=== PATIENT | female | born 1990 | race American Indian/Alaskan Native ===

== ENCOUNTER 2016-11-04 16:29 | Outpatient (CLI) | payer MEDICAID ==
[2016-11-04] MEDS ORDERED: LACTATED RINGERS 500 ML IV ONE (16:38)
[2016-11-04 17:49] LABS: Bacteria,Urine 1+ /HPF (Negative); Bilirubin,Urine NEG (Negative); Blood,Urine NEG (Negative); Ketones,Urine NEG (Negative); Leukocyte Esterase,Urine NEG (Negative); Mucus,Urine 3+ /HPF; Nitrite,Urine NEG (Negative); WBC,Urine < 1.0 /HPF (0.0-6.0)
[2016-11-04 18:23] VITALS: BP 105/62
--- NOTE | 2016-11-05 07:15 | Ultrasound Report ---
OB LIMITED INDICATION: Vaginal spotting. COMPARISON: None similar during this gestation. TECHNIQUE: Transabdominal grayscale ultrasound with Doppler interrogation. Gestation: Jones Position: Breech Placenta: Fundal; no evidence of abruption. Placental Grade: I Heart Rate: 157 BPM
== END 2016-11-04 19:00 | disposition home or self-care (01) ==
LOC: TRG 16:29
PROVIDERS: ATTEND Obstetrics & Gynecology
DX: O32.1XX0 Maternal care for breech presentation, not applicable or unspecified (principal); Z3A.00 Weeks of gestation of pregnancy not specified
CPT/HCPCS: 59025; 76815; 81001; 96360; J7120

== ENCOUNTER 2017-01-02 02:59 | Outpatient (CLI) | payer MEDICAID ==
[2017-01-02] MEDS ORDERED: LACTATED RINGERS 500 ML IV ONE (03:08)
[2017-01-02 03:15] VITALS: BP 121/68
[2017-01-02] MEDS ORDERED: VISTARIL PO ONE (03:47)
[2017-01-02 03:48] LABS: Bilirubin,Urine NEG (Negative); Blood,Urine NEG (Negative); Ketones,Urine NEG (Negative); Leukocyte Esterase,Urine NEG (Negative); Mucus,Urine FEW /HPF; Nitrite,Urine NEG (Negative); Protein,Urine <15 mg/dL mg/dL (Negative); Urobilinogen,Urine < 2.0 mg/dL (<2.0)
== END 2017-01-02 05:20 | disposition home or self-care (01) ==
LOC: TRG 02:59
PROVIDERS: ATTEND Obstetrics & Gynecology
DX: O62.9 Abnormality of forces of labor, unspecified (principal); Z3A.36 36 weeks gestation of pregnancy
CPT/HCPCS: 81001; Q0177

== ENCOUNTER 2017-01-09 22:43 | Outpatient (CLI) | payer MEDICAID ==
[2017-01-09 22:56] VITALS: BP 111/71
[2017-01-09] MEDS ORDERED: VISTARIL PO ONE (23:29)
== END 2017-01-09 23:35 | disposition home or self-care (01) ==
LOC: TRG 22:43
PROVIDERS: ATTEND Obstetrics & Gynecology
DX: O47.1 False labor at or after 37 completed weeks of gestation (principal); Z3A.37 37 weeks gestation of pregnancy
CPT/HCPCS: 59025; Q0177

== ENCOUNTER 2017-06-11 08:27 | Day surgery (SDC) | payer MEDICAID ==
[2017-06-11] MEDS ORDERED: NACL BACTERIOSTATIC INFILTRATI ONE (09:10)
[2017-06-11 09:40] LABS: Basophils % (Auto) 0.7 % (0.0-1.8); Eosinophils % (Auto) 5.1 % (0.0-4.3); Hematocrit 42.8 % (30.3-42.9); Hemoglobin 14.8 gm/dl (10.1-14.3); Mean Corpuscular HGB Conc 35 % (30-34); Mean Corpuscular Hemoglobin 30 pg (28-32); Mean Corpuscular Volume 85 fl (79-97); Platelet Count 239 K/mm3 (140-440); Red Blood Count 5.01 M/mm3 (3.65-5.03); Red Cell Distribution Width 13.2 % (13.2-15.2); White Blood Count 4.9 K/mm3 (4.5-11.0)
[2017-06-11] MEDS ORDERED: MONSEL'S TP ONE ×4 (09:43→10:56)
[2017-06-11] MEDS ORDERED: LUGOL'S SOLUTION 5% TP ONE (09:43)
[2017-06-11] MEDS ORDERED: ACETIC ACID 3% SOLN TP ONE (09:44)
[2017-06-11] MEDS ORDERED: VERSED IV NR (10:00)
[2017-06-11] MEDS ORDERED: LACTATED RINGERS 1,000 ML IV SCH (10:00)
--- NOTE | 2017-06-11 10:00 | Anesthesia Day of Surgery ---
Anesthesia Day of Surgery - Day of Surgery Patient Examined: Yes Patient H&P Reviewed: Yes Patient is NPO: Yes
--- NOTE | 2017-06-11 10:00 | Anesthesia Consultation ---
Anesthesia Consult and Med Hx Date of service: 06/11/17 - Airway Anesthetic Teeth Evaluation: Good ROM Head & Neck: Adequate Mental/Hyoid Distance: Adequate Mallampati Class: Class II Intubation Access Assessment: Good - Pulmonary Exam CTA: Yes - Cardiac Exam Cardiac Exam: No Murmur - Pre-Operative Health Status ASA Pre-Surgery Classification: ASA2 Proposed Anesthetic Plan: General - Pulmonary Hx Smoking: Yes Hx Asthma: No COPD: No Hx Pneumonia: No - Cardiovascular System Hx Hypertension: No - Central Nervous System Hx Seizures: No Hx Psychiatric Problems: No - Endocrine Hx Renal Disease: No Hx End Stage Renal Disease: No Hx Hypothyroidism: No Hx Hyperthyroidism: No - Hematic Hx Anemia: Yes Hx Sickle Cell Disease: No - Other Systems Hx Alcohol Use: No Hx Cancer: No
[2017-06-11] MEDS ORDERED: SILVER NITRATE TP ONE ×2 (10:01→10:51)
[2017-06-11] MEDS ORDERED: XYLOCAINE MPF 2% ONE (10:10)
[2017-06-11] MEDS ORDERED: DIPRIVAN 10 MG/ML IV ONE (10:10)
[2017-06-11] MEDS ORDERED: DILAUDID ONE ×2 (10:13→11:35)
[2017-06-11] MEDS ORDERED: ZOFRAN ONE (10:38)
[2017-06-11] MEDS ORDERED: DECADRON ONE (10:38)
[2017-06-11] MEDS ORDERED: NACL 0.9% IR ONE (10:50)
--- NOTE | 2017-06-11 11:14 | Post Anesthesia Evaluation ---
- Post Anesthesia Evaluation Patient Participated: Yes Airway Patent: Yes Stable Respiratory Function: Yes Nausea/Vomiting: No Temp > 96.8F: Yes Pain Manageable: Yes Adequeate Hydration: Yes Anesthesia Complications: No
--- NOTE | 2017-06-11 11:14 | Operative Report ---
Operative Report Operative Report: DATE OF OPERATION: 06/11/2017 POSTOPERATIVE DIAGNOSIS: Pap LGSIL can not r/o HGSIL colpo bx cin1 OPERATION PERFORMED: Loop electrosurgical excision procedure SURGEON: shelby Dhillon MD ANESTHESIA: General anesthesia. INDICATIONS FOR PROCEDURE: The patient is a 27-year-old G2 with a history of abnormal Pap smear. A colposcopy demonstrated CIN1 and pap smear showed LGSIL can not r/o HGSIL. . The patient has no significant past medical history. Past surgical history is significant section. . OB history: The patient is multiparous. . The patient was advised to undergo a LEEP procedure. All risks and benefits were discussed with the patient including potential risk of labor, cervical incompetence and premature rupture of membranes should she become in the future. The patient accepted these risks. All questions were answered and the patient was taken to the operating room in stable condition. PERTINENT FINDINGS: Bimanual examination revealed a normal sized midline uterus with no adnexal masses palpated. Cervix did not appear to have any gross masses. SPECIMENS: Ectocervix with anterior and posterior portions, ESTIMATED BLOOD LOSS: Minimal. IV FLUIDS: 800 mL of lactated Ringer's. DESCRIPTION OF PROCEDURE: The patient was taken to the OR where she was placed under general anesthesia without difficulty. She was then prepped and draped in the usual sterile fashion and placed in the dorsal lithotomy position. A preoperative bimanual examination revealed findings as above. A preoperative beta quantitative test was negative for as well. At this time, the large Graves speculum was placed in the vagina... The large loop electrode ( green) was used to remove the anterior or top portion of the cervix and a separate posterior specimen was excised and sent to pathology Specimen was placed on a Telfa pad and sent to pathology. The bed of the excised cervical tissue along the cervix was cauterized using the roller ball and monsel, and silver nitrate. . Hemostasis was noted. All instruments were removed from vagina at this point. The patient tolerated the procedure well without complication and was taken to the recovery room in stable condition.
[2017-06-11] MEDS ORDERED: PROAIR IH ONE (11:16)
[2017-06-11] MEDS ORDERED: TORADOL ONE (11:31)
[2017-06-11] MEDS ORDERED: ZOFRAN IV PRN (11:31)
[2017-06-11] MEDS ORDERED: TORADOL IV PRN (11:31)
[2017-06-11] MEDS ORDERED: DILAUDID IV PRN (11:31)
[2017-06-11 14:53] VITALS: BP 147/93
== END 2017-06-11 12:55 | disposition home or self-care (01) ==
LOC: OR 08:27
PROVIDERS: ATTEND Obstetrics & Gynecology
DX: D06.0 Carcinoma in situ of endocervix (principal); N72 Inflammatory disease of cervix uteri; D64.9 Anemia, unspecified; F17.200 Nicotine dependence, unspecified, uncomplicated; Z98.890 Other specified postprocedural states; Z79.899 Other long term (current) drug therapy; Z86.19 Personal history of other infectious and parasitic diseases; Z82.49 Family history of ischemic heart disease and other diseases of the circulatory system; Z80.9 Family history of malignant neoplasm, unspecified
CPT/HCPCS: 36415; 57522; 81025; 85025; 88305; 88341; 88342; J1100; J1170; J1885; J2250; J2405; J2704; J7120

== ENCOUNTER 2018-04-09 13:16 | Outpatient (CLI) | payer MEDICAID ==
--- NOTE | 2018-04-10 09:32 | Ultrasound Report ---
ULTRASOUND PELVIC COMPLETE ULTRASOUND TRANSVAGINAL HISTORY: Fertility and pelvic pain. COMPARISON: Ultrasound OB Limited dated 11/04/16. TECHNIQUE: Transabdominal and transvaginal ultrasound with color doppler interrogation. FINDINGS: Uterus: The uterus is anteverted. The uterus measures 7.5 x 4.9 x 6.3 cm. The uterine parenchyma is slightly heterogeneous but no discrete uterine mass is visualized. Small fibroids could be considered. Normal cervix. Endometrium: The endometrium measures 6 mm. No mass or fluid collection. Right ovary: 3.0 x 2.5 x 4.1 cm. No focal abnormality. Left ovary: 3.0 x 2.6 x 3.3 cm. A 2.1 cm simple appearing cyst is identified in the left ovary. No pelvic fluid or mass is identified. Normal color doppler interrogation. IMPRESSION: 2.1 cm left ovarian cyst.
== END 2018-04-09 13:17 | disposition home or self-care (01) ==
LOC: US 13:16
PROVIDERS: ATTEND Obstetrics & Gynecology
DX: N83.202 Unspecified ovarian cyst, left side (principal); N97.9 Female infertility, unspecified
CPT/HCPCS: 76830; 76856

== ENCOUNTER 2018-05-12 11:10 | Outpatient (CLI) | payer MEDICAID ==
--- NOTE | 2018-05-12 13:28 | Fluoroscopy Report ---
HYSTEROSALPINGOGRAM: History: Infertility and pain. Informed consent was obtained. Standard sterile prep and drape was employed. The catheter tip was subsequently placed within the uterine lumen via cervix. The small balloon on the tip of the catheter was inflated. 13 fluoroscopic images were captured. Retrograde injection opacifies normal appearing uterine lumen. There is prompt filling of the fallopian tubes with prompt bilateral spillage. The uterine lumen demonstrates no evidence for extrinsic compression or intrinsic mass. IMPRESSION: Normal hysterosalpingogram.
== END 2018-05-12 11:11 | disposition home or self-care (01) ==
LOC: FLUORO 11:10
PROVIDERS: ATTEND Obstetrics & Gynecology
DX: N97.9 Female infertility, unspecified (principal); R10.2 Pelvic and perineal pain
CPT/HCPCS: 58340; 74740; Q9967

== ENCOUNTER 2019-06-26 01:01 | Observation (INO) | payer MEDICAID ==
[2019-06-26] MEDS ORDERED: LACTATED RINGERS 1,000 ML IV ONE (02:45)
[2019-06-26 02:58] LABS: Bacteria,Urine 1+ /HPF (Negative); Bilirubin,Urine NEG (Negative); Blood,Urine NEG (Negative); Color,Urine Straw (Yellow); Protein,Urine <15 mg/dL mg/dL (Negative); Urobilinogen,Urine < 2.0 mg/dL (<2.0)
[2019-06-26] MEDS ORDERED: TYLENOL PO PRN (03:04)
[2019-06-26] MEDS ORDERED: AMPICILLIN/NS 2 GM/100 ML 2 GM/100 ML BAG IV ONE (03:04)
[2019-06-26] MEDS ORDERED: COLACE PO PRN (03:04)
[2019-06-26] MEDS ORDERED: STADOL IV ONE (03:09)
[2019-06-26] MEDS ORDERED: MAGNESIUM SULFATE 4GM/100ML 4 GM/100 ML BAG IV ONE (03:10)
[2019-06-26] MEDS: CELESTONE SOLUSPAN IM SCH (03:48)
[2019-06-26 03:52] LABS: Basophils % (Auto) 0.1 % (0.0-1.8); Eosinophils # (Auto) 0.1 K/mm3 (0.0-0.4); Eosinophils % (Auto) 0.8 % (0.0-4.3); Hematocrit 33.4 % (30.3-42.9); Hemoglobin 11.3 gm/dl (10.1-14.3); Lymphocytes # (Auto) 1.9 K/mm3 (1.2-5.4); Lymphocytes % (Auto) 23.3 % (13.4-35.0); Mean Corpuscular HGB Conc 34 % (30-34); Mean Corpuscular Volume 79 fl (79-97); Monocytes # (Auto) 0.7 K/mm3 (0.0-0.8); Platelet Count 211 K/mm3 (140-440); Red Blood Count 4.24 M/mm3 (3.65-5.03); Red Cell Distribution Width 15.5 % (13.2-15.2)
[2019-06-26] MEDS: LACTATED RINGERS 1,000 ML IV SCH ×2 (03:54→19:25)
[2019-06-26] MEDS: MAGNESIUM SULFATE 40GM/1000ML 40 GM/1,000 ML BAG IV SCH ×2 (04:09→23:24)
[2019-06-26 06:15] LABS: Amphetamine Screen,Urine PRESUMPTIVE NEGATIVE; Benzodiazepines Screen,Urine PRESUMPTIVE NEGATIVE; Cannabinoid Screen,Urine PRESUMPTIVE NEGATIVE; Cocaine Screen,Urine PRESUMPTIVE NEGATIVE; Methadone Screen,Urine PRESUMPTIVE NEGATIVE; Opiate Screen,Urine PRESUMPTIVE NEGATIVE
[2019-06-26] MEDS: PRENATAL VITAMIN PO SCH (10:09)
[2019-06-26] MEDS: AMPICILLIN/NS 1 GM/50 ML 1 GM/50 ML BAG IV SCH ×4 (10:11→19:24)
--- NOTE | 2019-06-26 10:16 | History and Physical Report ---
History of Present Illness Date of examination: 06/26/19 Date of admission: 06/26/19 03:29 Chief complaint: I'm having pain History of present illness: Pt is a 29 year old who presents with complaint of pain and vaginal pressure at 33 4/7 weeks. Patient has had a in the past followed by 2 vbacs and reports delivering 5 of her children prematurely. Pt receives care at [facility] but states that she only sees the headwaitress and has not seen a doctor yet to discuss her . She has been receiving weekely Carlyn injections. records are not available for review Past History Past Medical History: no pertinent history Past Surgical History: no surgical history Social history: - Obstetrical History Expected Date of Delivery: 08/10/19 Actual Gestation: 33 Week(s) 4 Day(s) : 8 Number of Living Children: 7 Medications and Allergies Allergies Allergy/AdvReac Type Severity Reaction Status Date / Time No Known Allergies Allergy Verified 06/05/17 14:57 Home Medications Medication Instructions Recorded Confirmed Last Taken Type Ibuprofen [Motrin] 600 mg PO Q8H PRN #30 tablet 06/11/17 Unknown Rx oxyCODONE /ACETAMINOPHEN [Percocet 1 tab PO Q6HR PRN #20 tablet 06/11/17 Unknown Rx 5/325] Active Meds: Active Medications Acetaminophen (Tylenol) 650 mg PO Q4H PRN PRN Reason: Pain MILD(1-3)/Fever >100.5/MONTIEL Betamethasone Acet/Betameth SodPhos (Celestone Soluspan) 12 mg IM Q24H AMENA Stop: 06/27/19 04:01 Last Admin: 06/26/19 03:48 Dose: 12 mg Documented by: Docusate Sodium (Colace) 100 mg PO Q12H PRN PRN Reason: Constipation Ampicillin Sodium (Ampicillin/Ns 1 Gm/50 Ml) 1 gm in 50 mls @ 100 mls/hr IV Q4HR AMENA; Protocol Last Admin: 06/26/19 10:11 Dose: 100 mls/hr Documented by: Lactated Ringer's (Lactated Ringers) 1,000 mls @ 75 mls/hr IV DIRECT AMENA Last Infusion: 06/26/19 08:53 Dose: 75 mls/hr Documented by: Magnesium Sulfate (Magnesium Sulfate 40gm/1000ml) 40 gm in 1,000 mls @ 50 mls/hr IV DIRECT [facility] Last Infusion: 06/26/19 08:53 Dose: 2 gm/hr, 50 mls/hr Documented by: Multivitamins/Iron/Calcium ( Vitamin) 1 each PO QDAY [facility] Last Admin: 06/26/19 10:09 Dose: 1 each Documented by: Review of Systems All systems: negative Gastrointestinal: abdominal pain Genitourinary: pelvic pain, contractions - Vital Signs Vital signs: Vital Signs Pulse BP Pulse Ox 88 117/70 99 06/26/19 01:39 06/26/19 01:39 06/26/19 01:39 Temp Pulse Resp BP Pulse Ox 98.2 F 93 H 18 117/59 99 06/26/19 08:04 06/26/19 10:10 06/26/19 08:57 06/26/19 09:51 06/26/19 10:10 - Physical Exam Breasts: Cardiovascular: Regular rate, Normal S1, Normal S2 Lungs: Positive: Clear to auscultation Abdomen: Positive: normal appearance, soft, normal bowel sounds. Negative: distention, tenderness Vulva: both: normal Vagina: Positive: normal moisture. Negative: discharge Cervix: Negative: lesion, discharge Uterus: Positive: normal size, normal contour Adnexa: both: normal Anus/Rectum: Positive: normal perianal skin, heme negative. Negative: rectal mass, hemorrhoids Extremities: Deep Tendon Reflex Grade: Normal +2 - Obstetrical Cervical Dilatation: 3 Cervical Effacement Percentage: 60 station: -3 Uterine Contraction Pattern: Irregular (with irritability) Uterine Contraction Intensity: Moderate Results Result Diagrams: 06/26/19 03:15 Abnormal lab results 06/26/19 06/26/19 Range/Units 03:15 06:04 MCH 27 L (28-32) pg RDW 15.5 H (13.2-15.2) % [place] % (Auto) 9.0 H (0.0-7.3) % Magnesium 4.50 H (1.7-2.3) mg/dL All other labs normal. Assessment and Plan Pt here at 33 weeks with contractions and possible labor. pt does not appear to be in active labor but states that she has pain whenever the baby moves. Nonetheless patient will be admitted for tocolysis and steroids.
[2019-06-26] MEDS: PROCARDIA*For Tocolysis only PO SCH ×2 (10:55→16:57)
[2019-06-26] MEDS ORDERED: SUBLIMAZE IV ONE (11:00)
[2019-06-27] MEDS: PROCARDIA*For Tocolysis only PO SCH ×4 (00:07→18:13)
[2019-06-27] MEDS: AMPICILLIN/NS 1 GM/50 ML 1 GM/50 ML BAG IV SCH (05:37)
--- NOTE | 2019-06-27 08:55 | Progress Note ---
Assessment and Plan - Patient Problems (1) labor Current Visit: Yes Status: Acute Plan to address problem: will continue magnesium until steroids are completed. Subjective - Subjective Date of service: 06/27/19 Interval history: 29y/o @ 33+5 weeks admitted for labor. Patient complains of intermittent pressure. Scheduled to have 2nd dose of steroids this afternoon. Patient reports: no loss of fluid Objective - Vital Signs Vital Signs: Vital Signs - 12hr 06/26/19 06/26/19 06/26/19 20:56 21:01 21:06 Pulse Rate 94 H 103 H 94 H Blood Pressure O2 Sat by Pulse 99 100 100 Oximetry 06/26/19 06/26/19 06/26/19 21:11 21:16 21:21 Pulse Rate 95 H 100 H 95 H Blood Pressure O2 Sat by Pulse 99 99 99 Oximetry 06/26/19 06/26/19 06/26/19 21:26 21:31 21:33 Pulse Rate 98 H 93 H 89 Blood Pressure 110/65 O2 Sat by Pulse 99 99 Oximetry 06/26/19 06/26/19 06/26/19 21:36 21:41 21:46 Pulse Rate 87 91 H 94 H Blood Pressure O2 Sat by Pulse 100 99 99 Oximetry 06/26/19 06/26/19 06/26/19 21:51 21:56 22:01 Pulse Rate 97 H 101 H 90 Blood Pressure O2 Sat by Pulse 100 99 100 Oximetry 06/26/19 06/26/19 06/26/19 22:06 22:11 22:16 Pulse Rate 93 H 93 H 90 Blood Pressure O2 Sat by Pulse 100 100 100 Oximetry 06/26/19 06/26/19 06/26/19 22:21 22:26 22:31 Pulse Rate 89 82 90 Blood Pressure O2 Sat by Pulse 100 99 99 Oximetry 06/26/19 06/26/19 06/26/19 22:34 22:36 22:41 Pulse Rate 88 97 H 90 Blood Pressure 102/60 O2 Sat by Pulse 98 100 Oximetry 06/26/19 06/26/19 06/26/19 22:46 22:51 22:56 Pulse Rate 100 H 98 H 101 H Blood Pressure O2 Sat by Pulse 100 100 99 Oximetry 06/26/19 06/26/19 06/26/19 23:01 23:06 23:11 Pulse Rate 98 H 98 H 106 H Blood Pressure O2 Sat by Pulse 99 99 99 Oximetry 06/26/19 06/26/19 06/26/19 23:16 23:21 23:26 Pulse Rate 103 H 102 H 92 H Blood Pressure O2 Sat by Pulse 99 99 98 Oximetry 06/26/19 06/26/19 06/26/19 23:31 23:32 23:36 Pulse Rate 101 H 90 95 H Blood Pressure 111/63 O2 Sat by Pulse 99 100 Oximetry 06/26/19 06/26/19 06/26/19 23:41 23:46 23:51 Pulse Rate 104 H 99 H 97 H Blood Pressure O2 Sat by Pulse 100 100 100 Oximetry 06/26/19 06/27/19 06/27/19 23:56 00:01 00:06 Pulse Rate 101 H 92 H 98 H Blood Pressure O2 Sat by Pulse 100 100 100 Oximetry 06/27/19 06/27/19 06/27/19 00:07 00:11 00:16 Pulse Rate 91 H 84 100 H Blood Pressure 133/81 O2 Sat by Pulse 100 100 Oximetry 06/27/19 06/27/19 06/27/19 00:21 00:26 00:31 Pulse Rate 92 H 103 H 94 H Blood Pressure O2 Sat by Pulse 100 100 100 Oximetry 06/27/19 06/27/19 06/27/19 00:33 00:36 00:41 Pulse Rate 87 96 H 94 H Blood Pressure 123/71 O2 Sat by Pulse 100 100 Oximetry 06/27/19 06/27/19 06/27/19 00:46 00:51 00:56 Pulse Rate 94 H 82 87 Blood Pressure O2 Sat by Pulse 99 100 100 Oximetry 06/27/19 06/27/19 06/27/19 01:01 01:06 01:11 Pulse Rate 95 H 84 97 H Blood Pressure O2 Sat by Pulse 99 99 99 Oximetry 06/27/19 06/27/19 06/27/19 01:16 01:21 01:26 Pulse Rate 81 93 H 87 Blood Pressure O2 Sat by Pulse 100 99 100 Oximetry 06/27/19 06/27/19 06/27/19 01:31 01:33 01:36 Pulse Rate 80 79 76 Blood Pressure 100/56 O2 Sat by Pulse 99 99 Oximetry 06/27/19 06/27/19 06/27/19 01:41 01:46 01:51 Pulse Rate 80 84 78 Blood Pressure O2 Sat by Pulse 99 100 99 Oximetry 06/27/19 06/27/19 06/27/19 01:56 02:01 02:06 Pulse Rate 85 84 88 Blood Pressure O2 Sat by Pulse 99 99 99 Oximetry 06/27/19 06/27/19 06/27/19 02:11 02:16 02:21 Pulse Rate 86 88 88 Blood Pressure O2 Sat by Pulse 99 99 99 Oximetry 06/27/19 06/27/19 06/27/19 02:26 02:31 02:32 Pulse Rate 89 91 H 86 Blood Pressure 99/53 O2 Sat by Pulse 99 99 Oximetry 06/27/19 06/27/19 06/27/19 02:36 02:41 02:46 Pulse Rate 93 H 91 H 114 H Blood Pressure O2 Sat by Pulse 98 99 99 Oximetry 06/27/19 06/27/19 06/27/19 02:51 02:56 03:01 Pulse Rate 84 83 95 H Blood Pressure O2 Sat by Pulse 99 99 100 Oximetry 06/27/19 06/27/19 06/27/19 03:06 03:11 03:16 Pulse Rate 87 83 83 Blood Pressure O2 Sat by Pulse 99 99 99 Oximetry 06/27/19 06/27/19 06/27/19 03:21 03:26 03:31 Pulse Rate 82 83 86 Blood Pressure O2 Sat by Pulse 99 99 99 Oximetry 06/27/19 06/27/19 06/27/19 03:32 03:36 03:41 Pulse Rate 83 89 90 Blood Pressure 108/60 O2 Sat by Pulse 99 98 Oximetry 06/27/19 06/27/19 06/27/19 03:46 03:51 03:56 Pulse Rate 89 90 90 Blood Pressure O2 Sat by Pulse 98 98 98 Oximetry 06/27/19 06/27/19 06/27/19 04:01 04:06 04:11 Pulse Rate 93 H 92 H 84 Blood Pressure O2 Sat by Pulse 98 98 98 Oximetry 06/27/19 06/27/19 06/27/19 04:16 04:21 04:26 Pulse Rate 86 87 86 Blood Pressure O2 Sat by Pulse 98 99 99 Oximetry 06/27/19 06/27/19 06/27/19 04:31 04:32 04:36 Pulse Rate 93 H 85 88 Blood Pressure 108/63 O2 Sat by Pulse 99 99 Oximetry 06/27/19 06/27/19 06/27/19 04:41 04:46 04:51 Pulse Rate 83 83 78 Blood Pressure O2 Sat by Pulse 99 99 99 Oximetry 06/27/19 06/27/19 06/27/19 04:56 05:01 05:06 Pulse Rate 78 98 H 88 Blood Pressure O2 Sat by Pulse 99 100 98 Oximetry 06/27/19 06/27/19 06/27/19 05:11 05:16 05:21 Pulse Rate 83 83 102 H Blood Pressure O2 Sat by Pulse 98 98 99 Oximetry 06/27/19 06/27/19 06/27/19 05:26 05:31 05:34 Pulse Rate 100 H 102 H 82 Blood Pressure 106/63 O2 Sat by Pulse 99 100 Oximetry 06/27/19 06/27/19 06/27/19 05:36 05:41 05:46 Pulse Rate 87 75 90 Blood Pressure O2 Sat by Pulse 100 100 99 Oximetry 06/27/19 06/27/19 06/27/19 05:51 05:56 06:01 Pulse Rate 91 H 88 82 Blood Pressure O2 Sat by Pulse 98 99 99 Oximetry 06/27/19 06/27/19 06/27/19 06:06 06:11 06:16 Pulse Rate 80 80 87 Blood Pressure O2 Sat by Pulse 100 99 98 Oximetry 06/27/19 06/27/19 06/27/19 06:21 06:26 06:31 Pulse Rate 88 89 88 Blood Pressure O2 Sat by Pulse 99 98 98 Oximetry 06/27/19 06/27/19 06/27/19 06:33 06:36 06:41 Pulse Rate 88 93 H 98 H Blood Pressure 109/58 O2 Sat by Pulse 99 99 Oximetry 06/27/19 06/27/19 06/27/19 06:46 06:51 06:56 Pulse Rate 88 91 H 87 Blood Pressure O2 Sat by Pulse 99 98 99 Oximetry 06/27/19 06/27/19 06/27/19 07:01 07:06 07:11 Pulse Rate 90 85 88 Blood Pressure O2 Sat by Pulse 99 99 100 Oximetry 06/27/19 06/27/19 06/27/19 07:16 07:21 07:26 Pulse Rate 88 92 H 97 H Blood Pressure O2 Sat by Pulse 99 99 99 Oximetry 06/27/19 06/27/19 06/27/19 07:31 07:33 07:36 Pulse Rate 89 83 84 Blood Pressure 104/51 O2 Sat by Pulse 99 98 Oximetry 06/27/19 06/27/19 06/27/19 07:41 07:46 07:51 Pulse Rate 91 H 77 83 Blood Pressure O2 Sat by Pulse 98 99 99 Oximetry 06/27/19 06/27/19 06/27/19 07:56 08:01 08:06 Pulse Rate 86 89 81 Blood Pressure O2 Sat by Pulse 98 99 98 Oximetry 06/27/19 06/27/19 06/27/19 08:11 08:16 08:21 Pulse Rate 98 H 84 80 Blood Pressure O2 Sat by Pulse 99 99 100 Oximetry 06/27/19 06/27/19 06/27/19 08:26 08:31 08:32 Pulse Rate 79 85 80 Blood Pressure 96/52 O2 Sat by Pulse 100 100 Oximetry 06/27/19 06/27/19 06/27/19 08:36 08:41 08:46 Pulse Rate 79 93 H 85 Blood Pressure O2 Sat by Pulse 100 100 100 Oximetry 06/27/19 08:51 Pulse Rate 83 Blood Pressure O2 Sat by Pulse 100 Oximetry - Labs Labs: Abnormal Labs 06/26/19 06/26/19 06/26/19 03:15 06:04 12:10 MCH 27 L RDW 15.5 H [place] % (Auto) 9.0 H Magnesium 4.50 H 5.90 H 06/26/19 06/27/19 06/27/19 17:22 00:31 06:06 MCH RDW [place] % (Auto) Magnesium 6.10 H 6.20 H 5.80 H Laboratory Results - last 24 hr 06/26/19 06/26/19 06/27/19 12:10 17:22 00:31 Magnesium 5.90 H 6.10 H 6.20 H 06/27/19 06:06 Magnesium 5.80 H
[2019-06-27] MEDS: LACTATED RINGERS 1,000 ML IV SCH (09:35)
[2019-06-27] MEDS: PRENATAL VITAMIN PO SCH (10:07)
[2019-06-27] MEDS: CELESTONE SOLUSPAN IM SCH (11:24)
[2019-06-28] MEDS: PROCARDIA*For Tocolysis only PO SCH ×2 (11:11→17:05)
[2019-06-28] MEDS: PRENATAL VITAMIN PO SCH (11:11)
--- NOTE | 2019-06-28 17:31 | Progress Note ---
Assessment and Plan A: IUP at 33w6d admitted for labor s/p magnesium sulfate and two doses of betamethasone currently on Nifedipine tocolysis P: Continue observation overnight. BPP for well being. Subjective - Subjective Date of service: 06/28/19 Principal diagnosis: labor, h/o delivery Interval history: Pt continues to report painful contractions though presently irregular. Patient reports: movement normal, contractions (per HPI ), no loss of fluid, no vaginal bleeding Objective - Vital Signs Vital Signs: Vital Signs - 12hr 06/28/19 06/28/19 06/28/19 06:20 06:21 08:01 Temperature 97.9 F Pulse Rate 60 59 L 58 L Respiratory 14 Rate Blood Pressure 96/48 101/52 Blood Pressure 101/52 [Right] O2 Sat by Pulse 98 Oximetry 06/28/19 17:12 Temperature 97.4 F L Pulse Rate 75 Respiratory 18 Rate Blood Pressure 134/73 Blood Pressure 134/73 [Right] O2 Sat by Pulse Oximetry - Exam Abdomen: Present: soft (gravid ) FHR: auscultation normal Cervical Dilatation: 3 Cervical Effacement Percentage: 80 station: -3 - Labs Labs: Abnormal Labs 06/26/19 06/26/19 06/26/19 03:15 06:04 12:10 MCH 27 L RDW 15.5 H [place] % (Auto) 9.0 H Magnesium 4.50 H 5.90 H 06/26/19 06/27/19 06/27/19 17:22 00:31 06:06 MCH RDW [place] % (Auto) Magnesium 6.10 H 6.20 H 5.80 H
--- NOTE | 2019-06-28 22:36 | Ultrasound Report ---
Limited OB ultrasound INDICATION: labor FINDINGS: Fetus is in a cephalic presentation. Amniotic fluid index is 8 cm which is within normal limits. The placenta is posterior, grade 2. heart rate is 123 bpm. Biophysical profile: INDICATION: labor FINDINGS: Biophysical profile score is 8 out of 8. Score of 2 for tone, breathing, movement and amniotic fluid. IMPRESSION: Biophysical profile score is 8 out of 8 Signer Name: Juni Gatica MD Signed: 06/28/2019 10:32 PM Workstation Name: [id number]
[2019-06-29] MEDS: PROCARDIA*For Tocolysis only PO SCH ×4 (02:18→10:38)
--- NOTE | 2019-06-29 08:05 | Ultrasound Report ---
ULTRASOUND OB LIMITED HISTORY: labor TECHNIQUE: Transabdominal imaging with color Doppler interrogation. COMPARISON: None. FINDINGS: Single intrauterine is identified in cephalic position. The placenta is posterior, grade 2. No evidence for previa or abruption. heart rate measures 123 bpm. Amniotic fluid volume is wit hin normal limits with SABRINA measuring 8 cm. IMPRESSION: Viable intrauterine . Signer Name: Kody Quick Jr, MD Signed: 06/29/2019 8:00 AM Workstation Name: [id number]
--- NOTE | 2019-06-29 09:47 | Ultrasound Report ---
ULTRASOUND BIOPHYSICAL PROFILE ULTRASOUND OB LIMITED INDICATION: SABRINA, BPP for well being TECHNIQUE: Transabdominal ultrasound imaging. COMPARISON: 06/28/2019 FINDINGS: breathing movement = 2 Gross body movement = 2 tone = 2 Qualitative amniotic fluid volume = 2 Total biophysical score = 8/8 Amniotic fluid index is 13.2 cm. Presentation is cephalic. heart rate is 118 beats per minute. IMPRESSION: biophysical profile equals 8/8. Signer Name: Kody Quick Jr, MD Signed: 06/29/2019 9:42 AM Workstation Name: [id number]
[2019-06-29] MEDS: PRENATAL VITAMIN PO SCH (10:37)
[2019-06-29 11:55] VITALS: BP 107/55
--- NOTE | 2019-06-29 12:55 | Progress Note ---
Assessment and Plan A: IUP at 34 weeks admitted for labor s/p magnesium sulfate and two doses of betamethasone currently on Nifedipine tocolysis P: BPP performed 05/26 normal SABRINA Discharge home on bedrest and pelvic rest with f/u with [facility] Subjective - Subjective Date of service: 06/29/19 Principal diagnosis: labor, h/o delivery Patient reports: movement normal, contractions (very irregular), no new complaints, no loss of fluid, no vaginal bleeding Objective - Vital Signs Vital Signs: Vital Signs - 12hr 06/29/19 06/29/19 06/29/19 07:35 07:39 11:45 Temperature 98.4 F Pulse Rate 71 76 Respiratory 20 Rate Blood Pressure 120/58 107/55 06/29/19 11:54 Temperature 97.8 F Pulse Rate Respiratory 20 Rate Blood Pressure - Exam Breasts: normal Cardiovascular: Regular rate, Normal S1 Lungs: Clear to auscultation, Normal air movement Abdomen: Present: normal appearance, soft, normal bowel sounds. Absent: distention, tenderness, guarding Vulva: both: normal Uterus: Present: normal, firm, fundal height above umbilicus. Absent: bogginess, tenderness FHR: category 1 Cervical Dilatation: 3 Cervical Effacement Percentage: 60 station: 2 Uterine Contraction Pattern: Irregular Deep Tendon Reflex Grade: Normal +2 - Labs Labs: Abnormal Labs 06/26/19 06/26/19 06/26/19 03:15 06:04 12:10 MCH 27 L RDW 15.5 H [place] % (Auto) 9.0 H Magnesium 4.50 H 5.90 H 06/26/19 06/27/19 06/27/19 17:22 00:31 06:06 MCH RDW [place] % (Auto) Magnesium 6.10 H 6.20 H 5.80 H
--- NOTE | 2019-06-29 12:57 | Discharge Summary ---
Providers - Providers Date of Admission: 06/26/19 03:29 Date of discharge: 06/29/19 Attending physician: ALONDRA GARIBAY Primary care physician: ALONDRA GARIBAY Hospitalization Reason for admission: labor Episiotomy: none Laceration: none Hospital course: Patient admitted for labor at 3cm. patient started mag and given 2 doses of BMZ. Currently on nifedipine for contractions. Discharge home and follow up next week . Condition at discharge: Good Disposition: DC-01 TO HOME OR SELFCARE Plan - Provider Discharge Summary Activity: routine, no sex for 6 weeks, no strenuous exercise Diet: routine Instructions: routine Additional instructions: [] Smoking cessation referral if applicable(refer to patient education folder for contact #) [] Refer to [facility] Booklet Call your doctor immediately for: * Fever > 100.5 * Heavy vaginal bleeding ( >1 pad per hour) * Severe persistent headache * Shortness of breath * Reddened, hot, painful area to leg or breast * Drainage or odor from incision. * Keep incision clean and dry at all times and follow doctor's instructions regarding bathing/showering - Follow up plan Follow up: ALONDRA GARIBAY MD [Primary Care Provider] - 7 Days
== END 2019-06-29 13:24 | disposition home or self-care (01) ==
LOC: TRG 01:01 → LD 03:29
PROVIDERS: ADMIT Obstetrics & Gynecology; ATTEND Obstetrics & Gynecology
DX: O62.9 Abnormality of forces of labor, unspecified (principal); Z3A.33 33 weeks gestation of pregnancy
CPT/HCPCS: 36415; 76815; 76819; 80307; 81001; 83735; 85025; 86850; 86900; 86901; 96365; 96366; 96372; 96375; G0378; J0290; J0595; J0702; J3010; J3475; J7120

== ENCOUNTER 2021-07-18 12:26 | Outpatient (CLI) | payer MEDICAID ==
[2021-07-18 13:16] VITALS: BP 123/76
[2021-07-18] MEDS ORDERED: LACTATED RINGERS 500 ML IV ONE (14:00)
[2021-07-18] MEDS ORDERED: BETAMET ACET/BETAMET NA PH 6 MG/ML INJ 5 ML MDV IM SCH ×2 (14:05→15:00)
== END 2021-07-18 16:24 | disposition home or self-care (01) ==
LOC: TRG 12:26 → APU 12:28 → TRG 16:24
PROVIDERS: ATTEND Obstetrics & Gynecology
DX: O42.913 Preterm premature rupture of membranes, unspecified as to length of time between rupture and onset of labor, third trimester (principal); Z3A.32 32 weeks gestation of pregnancy
CPT/HCPCS: 36415; 59025; 84112; 96372; J0702

== ENCOUNTER 2021-07-19 14:01 | Outpatient (CLI) | payer MEDICAID ==
[2021-07-19] MEDS ORDERED: BETAMET ACET/BETAMET NA PH 6 MG/ML INJ 5 ML MDV IM ONE (15:52)
[2021-07-19 16:24] VITALS: BP 108/70
== END 2021-07-19 17:15 | disposition home or self-care (01) ==
LOC: TRG 14:01 → APU 14:06 → TRG 17:15
PROVIDERS: ATTEND Obstetrics & Gynecology
DX: Z34.93 Encounter for supervision of normal pregnancy, unspecified, third trimester (principal); Z3A.32 32 weeks gestation of pregnancy
CPT/HCPCS: 96372; J0702

== ENCOUNTER 2021-08-14 05:07 | Inpatient (IN) | payer MEDICAID ==
[2021-08-14] MEDS ORDERED: METOCLOPRAMIDE 10 MG/2 ML INJ IV ONE (05:51)
[2021-08-14] MEDS ORDERED: FAMOTIDINE 20 MG/2 ML INJ IV ONE (05:51)
[2021-08-14] MEDS ORDERED: BICITRA ORAL LIQD 30ML PO ONE (05:51)
[2021-08-14] MEDS ORDERED: OXYTOCIN DRIP 30 UNITS/500 ML BAG IV SCH ×2 (06:00→14:00)
[2021-08-14] MEDS ORDERED: LACTATED RINGERS 1,000 ML IV SCH (06:00)
--- NOTE | 2021-08-14 06:33 | Anesthesia Day of Surgery ---
Anesthesia Day of Surgery - Day of Surgery Patient Examined: Yes Patient H&P Reviewed: Yes Patient is NPO: Yes Beta Blockers: No Cardiac Clearance: No Pulmonary Clearance: No Baldev's Test: Negative
--- NOTE | 2021-08-14 06:36 | Anesthesia Consultation ---
Anesthesia Consult and Med Hx Date of service: 08/14/21 - Airway Anesthetic Teeth Evaluation: Poor ROM Head & Neck: Adequate Mental/Hyoid Distance: Adequate Mallampati Class: Class II Intubation Access Assessment: Probably Good - Pulmonary Exam CTA: Yes - Cardiac Exam Cardiac Exam: RRR - Pre-Operative Health Status ASA Pre-Surgery Classification: ASA2, Emergency Proposed Anesthetic Plan: Spinal - Pulmonary Hx Smoking: Yes (1pk per dayx 9yrs) Hx Asthma: No Hx Respiratory Symptoms: No SOB: Yes COPD: No Home Oxygen Therapy: No Hx Pneumonia: No Hx Sleep Apnea: No - Cardiovascular System Hx Hypertension: Yes Hx Coronary Artery Disease: No Hx Heart Attack/AMI: No Hx Angina: No Hx Percutaneous Transluminal Coronary Angioplasty (PTCA): No Hx Cardia Arrhythmia: No Hx Pacemaker: No Hx Internal Defibrillator: No Hx Valvular Heart Disease: No Hx Heart Murmur: No Hx Peripheral Vascular Disease: No - Central Nervous System Hx Neuromuscular Disorder: No Hx Seizures: No CVA: No Hx Back Pain: Yes Hx Psychiatric Problems: Yes (Panic attacks) - Gastrointestinal Hx Ulcer: No Hx Gastroesophageal Reflux Disease: Yes - Endocrine Hx Renal Disease: No Hx End Stage Renal Disease: No Hx Cirrhosis: No Hx Liver Disease: No Hx Insulin Dependent Diabetes: No Hx Non-Insulin Dependent Diabetes: No Hx Thyroid Disease: No Hx Hypothyroidism: No Hx Hyperthyroidism: No - Hematic Hx Anemia: Yes Hx Sickle Cell Disease: No - Other Systems Hx Alcohol Use: Yes (occasionally) Hx Substance Use: No Hx Cancer: No Hx Obesity: No
[2021-08-14] MEDS ORDERED: ONDANSETRON 4 MG/2 ML INJ IV PRN ×2 (06:37→14:00)
[2021-08-14] MEDS ORDERED: NALOXONE 0.4 MG/1 ML INJ IV PRN ×2 (06:37→14:00)
[2021-08-14] MEDS ORDERED: HYDROmorphone 1 MG/1 ML INJ IV PRN (06:37)
[2021-08-14 06:44] LABS: Basophils % (Auto) 0.5 % (0.0-1.8); Eosinophils # (Auto) 0.1 K/mm3 (0.0-0.4); Eosinophils % (Auto) 0.9 % (0.0-4.3); Hematocrit 30.8 % (30.3-42.9); Hemoglobin 9.9 gm/dl (10.1-14.3); Lymphocytes # (Auto) 1.8 K/mm3 (1.2-5.4); Mean Corpuscular HGB Conc 32 % (30-34); Mean Corpuscular Volume 78 fl (79-97); Monocytes # (Auto) 0.6 K/mm3 (0.0-0.8); Platelet Count 241 K/mm3 (140-440); Red Blood Count 3.98 M/mm3 (3.65-5.03); Red Cell Distribution Width 16.2 % (13.2-15.2)
--- NOTE | 2021-08-14 06:44 | History and Physical Report ---
History of Present Illness Date of examination: 08/14/21 Date of admission: 08/14/21 06:14 Chief complaint: contractions, malpresentation History of present illness: Pt is a 31 year old LEONA 09/08/21 at 36w3d presents with painful contractions and advanced dilation of 4/90/-2. She denies leakage of fluid or vaginal bleeding. She has had care at [facility] complicated by malpresentation, grandmultiparity, h/o labor, de pression, multiple social stressors, gestational hypertension per [facility], glucose intolerance, h/o labor and delivery, genital herpes without lesion or prodrome. She is GBS negative. 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 History: herpes Family/Genetic History: hypertension, cancer Social history: no significant social history - Obstetrical History Expected Date of Delivery: 09/08/21 Actual Gestation: 36 Week(s) 3 Day(s) : 11 Para: 8 Hx # Term Pregnancies: 5 Number of Pregnancies: 3 Spontaneous Abortions: 2 Induced : 0 Number of Living Children: 8 Medications and Allergies Allergies Allergy/AdvReac Type Severity Reaction Status Date / Time No Known Allergies Allergy Verified 06/05/17 14:57 Home Medications Medication Instructions Recorded Confirmed Last Taken Type Vitamin 1 tab PO DAILY 06/28/19 07/18/21 3 Months Ago History ~04/17/21 Ferrous Sulfate [Ferrous Sulfate 324 mg PO BID #60 tablet. 07/07/19 07/18/21 1 Month Ago Rx 324 MG] ~06/17/21 Aspirin [Aspirin BABY CHEW TAB] 81 mg PO QDAY 07/18/21 07/18/21 1 Week Ago History ~07/11/21 B.coagul,Subtilis/Inulin/Vit C 1 each PO DAILY 07/18/21 07/18/21 07/16/21 History [Up4 Probiotics-Prebiotic Gummy] Hydroxyprogesterone Caproate 250 mg IM QWEEK 07/18/21 07/18/21 07/17/21 History [[place]] RX: NIFEdipine [Procardia] 10 mg PO DAILY 07/18/21 07/18/21 1 Week Ago History ~07/11/21 Active Meds: Active Medications Hydromorphone HCl (Hydromorphone 1 Mg/1 Ml Inj) 0.5 mg IV Q5M PRN PRN Reason: BREAK Hydromorphone HCl (Hydromorphone 1 Mg/1 Ml Inj) 0.5 mg IV Q4H PRN PRN Reason: breakthrough pain > 7/10 Lactated Ringer's (Lactated Ringers) 1,000 mls @ 2,250 mls/hr IV PREOP AMENA Stop: 08/15/21 06:27 Last Admin: 08/14/21 06:04 Dose: 2,250 mls/hr Documented by: Oxytocin/Sodium Chloride (Pitocin/Ns 30 Unit/500ml) 30 units in 500 mls @ 0 mls/hr IV TITR AMENA; Protocol Naloxone HCl (Naloxone 0.4 Mg/1 Ml Inj) 0.2 mg IV Q2MIN PRN PRN Reason: Res Rate </= 8 or 02 SAT < 92% Ondansetron HCl (Ondansetron 4 Mg/2 Ml Inj) 4 mg IV Q8H PRN PRN Reason: Nausea And Vomiting Review of Systems All systems: negative - Vital Signs Vital signs: Vital Signs Pulse Pulse Ox 93 H 96 08/14/21 05:21 08/14/21 05:21 Temp Pulse Resp BP Pulse Ox 98 F 82 18 133/73 100 08/14/21 05:28 08/14/21 06:35 08/14/21 05:28 08/14/21 05:37 08/14/21 06:35 - Physical Exam Breasts: Positive: deferred Abdomen: Positive: soft (gravid ) Genitourinary (Female): Positive: normal external genitalia Uterus: Positive: enlarged (gravid) Extremities: Positive: normal - Obstetrical FHR: auscultation normal Cervical Dilatation: 4 (per RN ) Cervical Effacement Percentage: 90 station: -2 Uterine Contraction Pattern: Regular Uterine Tone Measurement Phase: Resting Uterine Contraction Intensity: Strong/Firm Results All other labs normal. Assessment and Plan A: IUP at 36w3d Labor malpresentation Grandmultiparity h/o labor and delivery Depression Multiple social stressors Gestational hypertension per [facility] Glucose intolerance Genital herpes without lesion or prodrome GBS negative P: Admit to labor and delivery Malpresentaton confirmed by ultrasound Proceed with repeat section and other indicated procedures Pt declines tubal ligation today
--- NOTE | 2021-08-14 06:48 | Ultrasound Report ---
Limited OB ultrasound INDICATION: Presentation FINDINGS: There is a single live intrauterine in breech position. heart rate 121 bpm. IMPRESSION: Live intrauterine in breech position Signer Name: Babak Palomares MD Signed: 08/14/2021 6:44 AM Workstation Name: [id number]
[2021-08-14] MEDS ORDERED: ceFAZolin/Water 2 GM/20 ML 2 GM/20 ML SYRINGE IV NR (07:00)
[2021-08-14] MEDS ORDERED: miSOPROStol 200 MCG TAB ONE (07:04)
[2021-08-14] MEDS ORDERED: METHYLERGONOVINE MALEATE 0.2 MG/ML VIAL IM ONE (07:05)
[2021-08-14] MEDS ORDERED: CARBOPROST TROMETHAMINE 250 MCG/1 ML INJ IM ONE (07:05)
[2021-08-14] MEDS ORDERED: ceFAZolin/Water 2 GM/20 ML 2 GM/20 ML SYRINGE IV ONE (07:10)
[2021-08-14] MEDS ORDERED: SODIUM CHLORIDE 0.9% IRR 1,500 ML BOTTLE IR ONE (07:31)
[2021-08-14] MEDS ORDERED: WATER FOR IRRIG STERILE 1,500 ML BOTTLE IR ONE (07:31)
[2021-08-14] MEDS ORDERED: BUPIVACAINE/PF (0.25%) 2.5 MG/ML 30 ML VIAL INFILTRATI ONE ×2 (07:36)
[2021-08-14] MEDS ORDERED: PHENYLEPHRINE/NS 1,000 MCG/10 ML SYRINGE (OR USE) IV ONE (07:36)
[2021-08-14] MEDS ORDERED: ONDANSETRON 4 MG/2 ML INJ ONE (07:37)
[2021-08-14] MEDS ORDERED: dexAMETHasone 20 MG/5 ML VIAL ONE (07:37)
[2021-08-14] MEDS ORDERED: ceFAZolin/STERILE WATER 2 GM/20 ML SYRINGE IV ONE (07:39)
[2021-08-14] MEDS ORDERED: KETAMINE/STERILE WATER 50 MG/ML SYRINGE ONE (07:40)
[2021-08-14] MEDS ORDERED: KETOROLAC 30 MG/1 ML INJ ONE (08:03)
[2021-08-14] MEDS ORDERED: MIDAZOLAM 5 MG/5 ML INJ MDV IV ONE (08:15)
[2021-08-14] MEDS ORDERED: propofoL 200 MG/20 ML VIAL IV ONE (08:35)
--- NOTE | 2021-08-14 09:01 | Procedure Note ---
OB Delivery Note - Delivery Date of Delivery: 08/14/21 Surgeon: DIRK WADDELL - Section Preop diagnosis: repeat , breech, other ( labor ) Postop diagnosis: same section procedure: section, repeat low transverse Disposition: PACU Narrative: Please see operative report - Infant A at 1 minute: 8 at 5 minutes: 9 Gender: Female (2390g (5lb 4oz) @ 0757 am)
--- NOTE | 2021-08-14 09:03 | Operative Report ---
Operative Report Operative Report: Date of procedure: August 14, 2021 Preoperative diagnosis: 1) IUP at 36w3d 2) Labor 3) Malpresentation 4) Previous x 1 5) Grandmultiparity Postoperative diagnosis: Same Procedure: Repeat low transverse section Surgeon: Leatha Almazan M.D. Anesthesia: Regional Findings: 1) Viable female , Apgars 8 and 9 , weight 2390 g, (5lb 4oz) in adriana breech presentation. Terminal meconium 2) Normal appearing uterus, ovaries and tubes Estimated blood loss: mL IV fluids: 1500 mL Urine output: 200 mL, clear at the end of the procedure Drains: Snyder to gravity Specimens: None Complications: None. Counts correct x 3 Disposition: Stable to PACU Indication for procedure: Pt is a 31 year old at 36w3d with one prior section and known malpresentation presents in labor. The decision was made to proceed with delivery. Operation in detail: After the risks, benefits, alternatives and complications were explained to the patient she gave informed consent for the procedure. She was subsequently taken to the operating room where regional anesthesia was noted to be adequate. She was subsequently placed in the dorsal supine position with leftward tilt and prepped and draped in a normal sterile fashion. heart tones were noted prior to incision. A timeout was performed. A Pfannenstiel skin incision was made with the knife and carried down to the layer of the fascia with the Bovie. The fascia was incised in the midline and the fascial incision was extended bilaterally with the Bovie. The fascial incision was then stretched. The rectus muscles were then in the midline and partially transected for adequate visualization. The peritoneum was then entered bluntly. The peritoneal incision was extended with good visualization of the bladder. The peritoneal incision was then stretched. An Francisco retractor was placed. The bladder blade was then placed. A transverse incision was made in the lower uterine segment with a knife and extended bilaterally with the bandage scissors. Amniotomy was performed with egress of clear fluid. The buttocks were delivered, followed by legs and covered with a moist towel. Next the torso, arms and finally head were delivered. Terminal meconium noted. was bulb suctioned at delivery. Cord clamped and cut. handed to NICU staff in attendance. The placenta was then delivered manually. The uterus was then exteriorized and cleared of all clots and debris. The hysterotomy was then reapproximated with 0 Moncryl in a running locked fashion. A second layer of the same suture was used in imbricating fashion. The hysterotomy was inspected and hemostasis was noted. The uterus was placed back into the peritoneal cavity and the gutters were irrigated and cleared of all clots and debris. The hysterotomy was again inspected and noted to be hemostatic. Surgicel was placed over the hysterotomy. The Francisco retractor was removed. The peritoneum was reapproximated with 0 Monocryl in a running fashion incorporating the rectus muscles. Surgicel was placed over the rectus muscles. The fascia was reapproximated with 0 Vicryl in a running fashion. The skin was reapproximated with 3-0 Monocryl in a subcuticular fashion. The incision was then covered with steristrips and a pressure dressing. The procedure was then ended. The patient tolerated the procedure well and was taken to the PACU in stable condition. All instrument, lap, and needle counts were correct 3.
--- NOTE | 2021-08-14 09:20 | Progress Note ---
Spinal Anesthesia Block - Spinal Anesthesia Block Start Time: 07:21 Stop Time: 07:24 Performed by:: MYA HUYNH Procedure: Patient IDed, H&P reviewed, all questions and concerns were answered, and consent was signed. Timeout was performed at bedside. Patient in sitting position. Sterile prep and drape was performed. [3] ml of 1% lidocaine skin wheal at L[3]- L [4]. Needle introducer advanced. 25 gauge spinal needle advanced. Clear, free flowing CSF. negative blood, negative paresthesia. Spinal dose given. All needles removed. Patient tolerated procedure.
--- NOTE | 2021-08-14 09:21 | Progress Note ---
Spinal Anesthesia Block - Spinal Anesthesia Block Start Time: :03 Stop Time: :06 Performed by:: MYA HUYNH Procedure: Patient consented for TAP block for post surgical pain management. Patient identified, monitors placed, and time out performed. TAP identified bilaterally via ultrasound. Skin prepped bilaterally with [chlorhexidine] and [22g stimuplex] needle advanced to the TAP. [Marcaine 0.25% 35ml] injected under ultrasound guidance on the [left] side. [Marcaine 0.25% 35ml] injected under ultrasound guidance on the [right] side. Negative aspiration every 5mL, No change in heart rate or rhythm. Patient tolerated the procedure well. No apparent complications seen.
[2021-08-14] MEDS: HYDROmorphone 1 MG/1 ML INJ IV PRN ×2 (13:00→22:15)
[2021-08-14] MEDS ORDERED: D5W/LACTATED RINGERS 1,000 ML IV SCH (13:00)
[2021-08-14] MEDS: KETOROLAC 30 MG/1 ML INJ IV SCH ×2 (14:00→21:09)
[2021-08-14] MEDS ORDERED: IBUPROFEN 600 MG TAB PO PRN (14:00)
[2021-08-14] MEDS: ceFAZolin/NS 1 GM/50 ML 1 GM/50 ML BAG IV SCH ×2 (14:00→23:51)
[2021-08-14] MEDS ORDERED: WITCH HAZEL/ GLYCERIN PAD TP PRN (14:00)
[2021-08-14] MEDS ORDERED: LANOLIN/ZINC/DIMETHICONE (LANSINOH) 7 GM TP PRN (14:00)
[2021-08-14] MEDS ORDERED: IBUPROFEN 800 MG TAB PO PRN (14:00)
--- NOTE | 2021-08-14 14:54 | Post Anesthesia Evaluation ---
- Post Anesthesia Evaluation Patient Participated: Yes Airway Patent: Yes Stable Respiratory Function: Yes Nausea/Vomiting: No Temp > 96.8F: Yes Pain Manageable: Yes Adequeate Hydration: Yes Anesthesia Complications: No Block Receding Appropriately: Yes Patient on Ventilator: No
[2021-08-14] MEDS ORDERED: MAGNESIUM HYDROXIDE (MOM) ORAL LIQD UDC PO PRN (22:00)
[2021-08-15 01:22] LABS: Hematocrit 28.5 % (30.3-42.9); Hemoglobin 9.1 gm/dl (10.1-14.3)
[2021-08-15] MEDS: KETOROLAC 30 MG/1 ML INJ IV SCH ×2 (03:08→11:20)
[2021-08-15] MEDS: HYDROmorphone 1 MG/1 ML INJ IV PRN (05:28)
[2021-08-15] MEDS ORDERED: TETANUS,DIPH,PERTUSS(ACELL) VACCINE 0.5 ML SYRINGE IM ONE (09:12)
[2021-08-15] MEDS ORDERED: MEASLES, MUMPS & RUBELLA 12,500 UNIT/0.5 ML VACCINE SUB-Q ONE (09:12)
[2021-08-15] MEDS ORDERED: KETOROLAC 30 MG/1 ML INJ ONE (10:40)
[2021-08-15] MEDS: oxyCODONE /ACETAMINOPHEN 5-325MG TAB PO PRN ×3 (11:24→20:28)
--- NOTE | 2021-08-15 12:50 | Progress Note ---
Assessment and Plan A: POD#1 s/p R. LTCS at 36wks. Acute on chronic anemia P: Continue with routine care. Oral Fe supplementation Subjective - Subjective Date of service: 08/15/21 Principal diagnosis: POD#1 s/p R. LTCS at 36weeks Interval history: POD#1 s/p R. LTCS at 36weeks. Patient is feeling well and has no complaints. Reporting pain well controlled, decreasing lochia, no problems with ambulation or voiding. Patient reports: voiding normally, pain well controlled, flatus, ambulating normally, no bowel movement : doing well Objective - Vital Signs Latest vital signs: Vital Signs Temp Pulse Resp BP BP Pulse Ox Pulse Ox 08/15/21 07:41 97.6 F 54 L 16 120/55 99 08/15/21 05:58 18 08/15/21 05:53 98.1 F 76 18 107/54 100 08/15/21 05:28 18 08/15/21 03:38 18 08/15/21 03:08 18 08/15/21 00:19 97.9 F 52 L 16 118/62 100 08/14/21 22:45 18 08/14/21 22:15 18 08/14/21 21:39 18 08/14/21 21:15 99 08/14/21 21:09 18 08/14/21 21:04 98.1 F 69 18 111/65 100 08/14/21 18:33 99 08/14/21 16:42 97.4 F L 70 18 101/65 08/14/21 16:00 99 08/14/21 14:00 99 08/14/21 13:00 97.9 F 79 18 135/83 Intake and Output 08/14/21 08/15/21 08/15/21 23:59 07:59 15:59 Intake Total 840 240 120 Output Total 1100 500 Balance -260 -260 120 Intake: Oral 840 120 Intake, Free Water 240 Output: Urine 1100 500 Indwelling Catheter 1000 Void 100 500 Other: Total, Intake Amount 240 120 Total, Output Amount 100 200 # Voids Void 1 - Labs Labs: Abnormal lab results 08/14/21 Range/Units 23:54 Hgb 9.1 L (10.1-14.3) gm/dl Hct 28.5 L (30.3-42.9) %
[2021-08-15] MEDS: FERROUS SULFATE 325 MG TAB PO SCH (22:51)
--- NOTE | 2021-08-16 08:50 | Progress Note ---
Assessment and Plan A: POD#2 s/p repeat section at 36 wks for labor and malpresentation Asymptomatic Anemia Subjective - Subjective Date of service: 08/16/21 Principal diagnosis: POD#2 s/p R. LTCS at 36weeks Interval history: No overnight events. Patient would like to go home if possible Patient reports: appetite normal, voiding normally, pain well controlled, flatus, ambulating normally, no bowel movement [place]: doing well Objective - Vital Signs Latest vital signs: Vital Signs Temp Pulse Resp BP Pulse Ox Pulse Ox 08/16/21 00:09 98.6 F 79 16 138/78 99 08/15/21 20:28 98 08/15/21 17:33 98 08/15/21 15:58 98 08/15/21 15:47 97.4 F L 64 20 117/67 99 08/15/21 14:01 98 08/15/21 12:30 98 08/15/21 10:25 98 Intake and Output 08/15/21 08/16/21 08/16/21 22:59 06:59 14:59 Intake Total 240 Balance 240 Intake: Oral 240 Other: Total, Intake Amount 240 # Voids Void 1 - Exam Breasts: Present: deferred Abdomen: Present: soft, distention (mild ) Uterus: Present: fundal height below umbilicus Extremities: Present: normal Incision: Present: intact
--- NOTE | 2021-08-16 08:54 | Discharge Summary ---
Providers - Providers Date of Admission: 08/14/21 06:14 Date of discharge: 08/16/21 Attending physician: DIRK WADDELL 08/14/21 12:44 Consult to L[employer] Mover [CONS] Routine Reason For Exam: Primary care physician: DIRK WADDELL Hospitalization Reason for admission: labor Delivery: Procedure: section, repeat low transverse Procedure details: Please see operative report Incision: intact Other procedures: none complications: none Discharge diagnosis: IUP at term delivered baby: female Hospital course: This patient was admitted in labor and was found to be in breech presentation. She underwent a repeat section which he tolerated well. Her postoperative course was uncomplicated and she met discharge criteria on postoperative day #2. She will follow-up in the office in 2 weeks for an incision check. Condition at discharge: Stable Disposition: 01 HOME / SELF CARE / HOMELESS - Discharge Diagnoses (1) Malpresentation of fetus, delivered Status: Acute (2) Acute blood loss anemia Status: Acute (3) delivery Status: Acute (4) labor Status: Acute Qualifiers: labor trimester: third trimester labor delivery status: with delivery in third trimester Fetus number: single or unspecified fetus Qualified Code(s): O60.14X0 - labor third trimester with delivery third trimester, not applicable or unspecified Plan - Discharge Medications Prescriptions: Ferrous Sulfate [Feosol 325 MG tab] 325 mg PO BID #60 tablet Ibuprofen [Motrin] 800 mg PO Q8HR PRN #30 tablet PRN Reason: Pain, Moderate (4-6) oxyCODONE /ACETAMINOPHEN [Percocet 5/325] 1 tab PO Q6HR PRN #30 tablet PRN Reason: Pain - Provider Discharge Summary Activity: routine, no sex for 6 weeks, no heavy lifting 4 weeks, no strenuous exercise Diet: routine Instructions: routine Additional instructions: [] Smoking cessation referral if applicable(refer to patient education folder for contact #) [] Refer to [facility] Booklet Call your doctor immediately for: * Fever > 100.5 * Heavy vaginal bleeding ( >1 pad per hour) * Severe persistent headache * Shortness of breath * Reddened, hot, painful area to leg or breast * Drainage or odor from incision. * Keep incision clean and dry at all times and follow doctor's instructions regarding bathing/showering - Follow up plan Follow up: ESTIVEN SAUCEDO, MAINTENANCE TEAM MEMBER [Advanced Practice Nurse] - 14 Days (Please schedule an incision check )
[2021-08-16] MEDS ORDERED: SIMETHICONE 80 MG CHEW TAB PO PRN (09:00)
[2021-08-16] MEDS: FERROUS SULFATE 325 MG TAB PO SCH (09:22)
[2021-08-16] MEDS ORDERED: LACTULOSE 20 GM/30 ML ORAL LIQD PO SCH (12:00)
[2021-08-16] MEDS: oxyCODONE /ACETAMINOPHEN 5-325MG TAB PO PRN (13:12)
[2021-08-16 18:39] VITALS: BP 133/79
== END 2021-08-16 18:00 | disposition home or self-care (01) | DRG 765 ==
LOC: TRG 05:07 → APU 05:19 → TRG 05:26 → APU 06:14 → OB 10:46
PROVIDERS: ADMIT Obstetrics & Gynecology; ATTEND Obstetrics & Gynecology
PROC: 10D00Z1 Extraction of Products of Conception, Low, Open Approach (ICD-10-PCS; principal; 2021-08-14)
DX: O32.1XX0 Maternal care for breech presentation, not applicable or unspecified (principal); O60.14X0 Preterm labor third trimester with preterm delivery third trimester, not applicable or unspecified; O34.211 Maternal care for low transverse scar from previous cesarean delivery; O99.344 Other mental disorders complicating childbirth; F32.A Depression, unspecified; O13.4 Gestational [pregnancy-induced] hypertension without significant proteinuria, complicating childbirth; A60.00 Herpesviral infection of urogenital system, unspecified; O77.0 Labor and delivery complicated by meconium in amniotic fluid; O99.02 Anemia complicating childbirth; D64.9 Anemia, unspecified; Z20.822 Contact with and (suspected) exposure to COVID-19; O98.32 Other infections with a predominantly sexual mode of transmission complicating childbirth; Z37.0 Single live birth; Z3A.36 36 weeks gestation of pregnancy; Z82.49 Family history of ischemic heart disease and other diseases of the circulatory system; Z80.9 Family history of malignant neoplasm, unspecified
CPT/HCPCS: 36415; 59025; 76815; 85014; 85018; 85025; 86850; 86900; 86901; 99406; G0378; J0690; J1100; J1170; J1885; J2250; J2370; J2405; J2704; J2765; J3490; J7120; J7121; U0003